=== PATIENT | female | born 1985 | race Two or more races ===

== ENCOUNTER 2017-03-31 02:39 | Emergency (ER) | payer MEDICAID, OTHER ==
[~2017-03-31] VITALS: Ht 160 cm; Wt 90.7 kg
[~2017-03-31 02:39] MED LIST: ISOPTO HOMATROPI5 ML BOTH EYES; NKM; NORCO 5-325 TA1 EACH ORAL; PRED FORTE1 ML OP
[2017-03-31 02:54] VITALS: BP 157/94
[2017-03-31] MEDS ORDERED: Albuterol ud Inhalation HHN ONE (03:00)
[2017-03-31] MEDS ORDERED: IBUPROFEN600 MG ORAL (03:03)
[2017-03-31] MEDS ORDERED: ALBUTEROL SULF8.5 GM INH (03:03)
--- NOTE | 2017-03-31 03:03 | Emergency Room Report ---
History of Present Illness General Chief Complaint: Upper Respiratory Illness Source: Patient Present Illness [facility] This is a 31-year-old female with no past medical history. She presents with chief complaint of fever chills. Also has coughing congestion chest tightness the last 3-4 days. Generalized body pain. Worse with inspiration. Worse with lying flat. [id number] medication not helping much. Allergies: Coded Allergies: LATEX (Unverified Allergy, Unknown, 05/07/14) Patient History Past Medical History: see triage record, old chart reviewed Past Surgical History: none Pertinent Family History: none Social History: Denies: smoking Last Menstrual Period: 2 weeks ago Now: No Immunizations: other Reviewed Nursing Documentation: PMH: Agreed, PSxH: Agreed Review of Systems Constitutional: Reports: chills, fever, weakness Eye: Denies: eye pain, blurred vision ENT: Reports: nose congestion, throat pain, Denies: ear pain, throat swelling Respiratory: Reports: cough, shortness of breath Cardiovascular: Denies: chest pain, palpitations Gastrointestinal: Denies: abdominal pain, diarrhea, nausea, vomiting Musculoskeletal: Denies: back pain, joint pain Skin: Denies: rash Neurological: Denies: headache, numbness Endocrine: Denies: increased thirst, increased urine Hematologic/Lymphatic: Denies: easy bruising All Other Systems: negative except mentioned in HPI Physical Exam Vital Signs Date Time Temp Pulse Resp B/P (MAP) Pulse Ox O2 Delivery O2 Flow Rate FiO2 03/31/17 02:41 98.2 86 18 157/94 96 Room Air vitals with high blood pressure Sp02 EP Interpretation: reviewed, normal General Appearance: well appearing, no apparent distress, alert Head: normocephalic, atraumatic Eyes: bilateral eye PERRL, bilateral eye EOMI ENT: hearing grossly normal, normal pharynx Neck: full range of motion, supple, no meningismus Respiratory: chest non-tender, lungs clear, normal breath sounds, other - Coughing with inspiration Cardiovascular #1: regular rate, rhythm, no murmur Gastrointestinal: normal bowel sounds, non tender, no mass, no organomegaly, no bruit, non-distended Musculoskeletal: back normal, gait/station normal, normal range of motion Psychiatric: mood/affect normal Skin: warm/dry Medical Decision Making Diagnostic Impression: Primary Impression: Influenza-like illness ER Course Patient presents with a viral illness. No evidence of sepsis, meningitis, pneumonia to name a few. Better after breathing treatment. No risk factors for complication from influenza. She is outside of the window for treatment. We'll discharge home. Last Vital Signs Date Time Temp Pulse Resp B/P (MAP) Pulse Ox O2 Delivery O2 Flow Rate FiO2 03/31/17 02:54 86 18 Room Air 03/31/17 02:54 98.2 157/94 96 Status: improved Disposition: HOME, SELF-CARE Condition: Stable Scripts Ibuprofen* (MOTRIN*) 600 Mg Tablet 600 MG ORAL THREE TIMES A DAY, #30 TAB 0 Refills Prov: ANGIE LYLE M.D. 03/31/17 Albuterol Sulfate* (ALBUTEROL SULFATE MDI*) 8.5 Gm Hfa.aer.ad 2 PUFF INH Q4H Y for cough/wheezing, #1 EA 0 Refills Prov: ANGIE LYLE M.D. 03/31/17 Patient Instructions: Upper Respiratory Infection, Adult Additional Instructions: Followup with your DrChina in 7 days. Rest. Increase fluids. Return worse. ANGIE LYLE M.D. Mar 31, 2017 03:03
[2017-03-31 03:37] VITALS: BP 157/94
== END 2017-03-31 03:37 | disposition home or self-care (01) ==
LOC: EMR 02:55
DX: J11.1 Influenza due to unidentified influenza virus with other respiratory manifestations (principal); Z91.040 Latex allergy status
CPT/HCPCS: 99283

== ENCOUNTER 2017-08-27 15:04 | Emergency (ER) | payer OTHER ==
[~2017-08-27] VITALS: Ht 160 cm; Wt 90.7 kg
[~2017-08-27 15:04] MED LIST changes: +ALBUTEROL SULF8.5 GM INH; +IBUPROFEN600 MG ORAL
[2017-08-27 15:19] VITALS: BP 125/69
[2017-08-27] MEDS ORDERED: DIPROLENE OI1 APPLIC TOPIC (15:36)
--- NOTE | 2017-08-27 15:39 | Emergency Room Report ---
History of Present Illness General Chief Complaint: Skin Rash/Abscess Source: Patient, Medical Record (Homero Andrews) Present Illness HPI 30-year-old female patient presents ER complaining of rash on abdomen and back with past 3 weeks. Reports intermittent and pruritic. Denies fever or chest pain. Denies other acute symptoms. Denies vomiting. Denies open wounds or draining. Denies bleeding. Denies other acute symptoms. denies contacts with similar symptoms. Denies change in deodorants or creams. reports previously use steroid cream for 2 days at symptom onset without relief of symptoms. (Homero Andrews) Allergies: Coded Allergies: LATEX (Unverified Allergy, Unknown, 05/07/14) Patient History Past Medical History: see triage record Last Menstrual Period: 08/07/17 Reviewed Nursing Documentation: PMH: Agreed; PSxH: Agreed (Homero Andrews) Social History: Reports: smoking; Denies: alcohol use, drug use Social History Narrative homeless and recent settlement for workman's comp claim, not working now (Vinny Portillo M.D.) Nursing Documentation-PMH Past Medical History: No History, Except For (Homero Andrews) Review of Systems All Other Systems: negative except mentioned in HPI (Homero Andrews) Physical Exam Vital Signs Date Time Temp Pulse Resp B/P (MAP) Pulse Ox O2 Delivery O2 Flow Rate FiO2 08/27/17 15:09 98.1 105 18 125/69 100 Room Air 98.1 Sp02 EP Interpretation: reviewed, normal General Appearance: well appearing, no apparent distress, alert, GCS 15, non- toxic Head: normocephalic, atraumatic Eyes: bilateral eye normal inspection, bilateral eye PERRL ENT: hearing grossly normal, normal pharynx, no angioedema, normal voice, uvula midline, moist mucus membranes Neck: full range of motion Respiratory: lungs clear, normal breath sounds, no rhonchi, no respiratory distress, no accessory muscle use, no wheezing, speaking full sentences Cardiovascular #1: regular rate, rhythm, no edema Musculoskeletal: back normal, digits/nails normal, gait/station normal, normal range of motion, non-tender Neurologic: alert, oriented x3, responsive, motor strength/tone normal, sensory intact Psychiatric: mood/affect normal Skin: rash - multiple scaly plaques on abdomen and back, do not domingo with pressure, no open wounds or lesions, no tenderness to palpation, no central clearing, no satellite lesions, no erythema or edema, no excoriations, no vesicles or blisters; rash spares palms, soles, web spaces bilaterally (Homero Andrews) Medical Decision Making PA Attestation Dr. Portillo is my supervising Physician whom patient management has been discussed with. (Homero Andrews) Diagnostic Impression: Primary Impression: Rash and other nonspecific skin eruption Additional Impression: Stress ER Course Pt. presents to the ED c/o rash. Ddx considered but are not limited to atopic dermatitis, scabies, shingles, hives, urticaria, allergic reaction, impetigo, tinea, pityriasis rosea, psoriasis. Vital signs: are WNL, pt. is afebrile Ordered medication. ER COURSE based on physical exam likely pityriasis rosea vs fungal infection, possible Patrick tree pattern on back, no herald patch noted or reported by patient. will provide topical antifungal medication and Benadryl for pruritus symptoms. informed patient that progressive shortness and likely to resolve on its own. Apply cool compresses, do not scratch. Keep area clean and dry. Follow-up with application packaging consultant for further treatment and referral. Avoid stressors. Provided with information for mental health follow-up. do not believe patient is a danger to herself or others at this time. OK for discharge to home. drink plenty of fluids. Stop smoking. patient seen and evaluated by Dr. Portillo agrees with treatment and plan. DISCHARGE: -Rx given for Benadryl for pruritis. -Rx given for Diflucan topical. apply to affected area for 2 weeks, do not apply to face. At this time pt. is stable for d/c to home. Patient resting comfortably, in no acute distress, nontoxic appearing, smiling. Will provide printed patient care instructions, and any necessary prescriptions. Care plan and follow up instructions have been discussed with the patient prior to discharge. Patient provided with list of healthcare clinics to establish primary care physician. Patient instructed to follow-up with primary care provider in 3 - 5 days. Patient questions asked and answered. ER precautions given. Patient instructed to return to ER immediately for any new or worsening of symptoms including but not limited to increasing SOB, persistent fever. - Please note that this Emergency Department Report was dictated using Vesetpainting department supervisor technology software, occasionally this can lead to erroneous entry secondary to interpretation by the dictation equipment. (Homero Andrews) ER Course I examined this patient and agree with the assessment and treatment plan. (Vinny Portillo M.D.) Last Vital Signs Date Time Temp Pulse Resp B/P (MAP) Pulse Ox O2 Delivery O2 Flow Rate FiO2 08/27/17 15:19 98.1 18 125/69 100 Room Air 98.1 08/27/17 15:09 105 (Homero Andrews) Last Vital Signs Date Time Temp Pulse Resp B/P (MAP) Pulse Ox O2 Delivery O2 Flow Rate FiO2 08/27/17 16:45 98.1 18 125/69 100 Room Air 98.1 08/27/17 15:09 105 (Vinny Portillo M.D.) Disposition: HOME, SELF-CARE Condition: Stable Scripts Clotrimazole* (LOTRIMIN*) 15 Gm Cream..g. 1 APPLIC TOPIC TWICE A DAY for 14 Days, #15 GM Prov: Homero Andrews 08/27/17 Diphenhydramine Hcl* (BENADRYL*) 25 Mg Capsule 25 MG ORAL DAILY PRN for Itching, #30 CAP Prov: Homero Andrews 08/27/17 Patient Instructions: Body Ringworm, Pityriasis Rosea, Psoriasis, [id number] Additional Instructions: Followup with primary care provider in 2-3 days. Request referral to dermatology. Take medications as directed. Apply Small amount of medication to affected area. Do not apply medication to face or eyes. Side effect drowsiness with Benadryl, did not take prior to drinking trying operating any machinery. Wash all clothes, bedding, towels. Keep skin clean and dry. Patient questions asked and answered. ER precautions given, patient instructed to return to ER immediately for any new or worsening of symptoms. Shirley Turner Address: [address] [place], [place] [address] [address] Homero Andrews Aug 27, 2017 15:39 Vinny Portillo M.D. Aug 28, 2017 01:02
[2017-08-27] MEDS ORDERED: HYDROXYZINE PA100 MG ORAL (16:00)
[2017-08-27] MEDS ORDERED: CLOTRIMAZOLE15 GM TOPIC (16:15)
[2017-08-27] MEDS ORDERED: BENADRYL25 MG ORAL (16:15)
[2017-08-27 16:45] VITALS: BP 125/69
== END 2017-08-27 16:45 | disposition home or self-care (01) ==
LOC: EMR 15:35
DX: R21 Rash and other nonspecific skin eruption (principal); F43.9 Reaction to severe stress, unspecified; Z91.040 Latex allergy status
CPT/HCPCS: 99284

== ENCOUNTER 2017-11-15 09:58 | Emergency (ER) | payer OTHER ==
[~2017-11-15] VITALS: Ht 157.5 cm; Wt 90.7 kg
[~2017-11-15 09:58] MED LIST changes: +BENADRYL25 MG ORAL; +CLOTRIMAZOLE15 GM TOPIC; +DIPROLENE OI1 APPLIC TOPIC; +HYDROXYZINE PA100 MG ORAL
[2017-11-15 10:11] VITALS: BP 104/63
[2017-11-15 10:32] LABS: APPEARANCE,URINE SLIGHTLY CLOUDY; BILIRUBIN, URINE NEGATIVE (NEGATIVE); GLUCOSE, URINE (UA) NEGATIVE (NEGATIVE); KETONES,URINE NEGATIVE (NEGATIVE); LEUKOCYTE ESTERASE ,URINE 3+ (NEGATIVE); NITRITE,URINE NEGATIVE (NEGATIVE); PH,URINE 7 (4.5-8.0); PROTEIN,URINE 1+ (NEGATIVE); UROBILINOGEN,URINE 1 MG/DL (0.0-1.0)
[2017-11-15 10:38] LABS: COLOR,URINE YELLOW
--- NOTE | 2017-11-15 11:12 | Emergency Room Report ---
History of Present Illness General Chief Complaint: Female Urogenital Problems Source: Patient Present Illness HPI The patient is 15 weeks 6 days . She states that she underwent a routine ultrasound and was told everything was normal with her ultrasound. She states she also had undergone a pelvic exam earlier that week to include STD testing and states that everything was negative. She is noted that she has had a white discharge that has a fishy odor to it. She states that she is monogamous with the same partner and has no suspicion for an STD. She states that since the pelvic ultrasound yesterday she has had some pain in her lower pelvis. She denies dysuria or hematuria. She denies vaginal bleeding. She denies fever or chills. She has no other complaints. Allergies: Coded Allergies: LATEX (Unverified Allergy, Unknown, 05/07/14) Patient History Past Medical History: none, see triage record Social History: Reports: smoking; Denies: alcohol use, drug use Last Menstrual Period: August 07, 2017 Now: Yes - 15 weeks : 1 Para: 0 Reviewed Nursing Documentation: PMH: Agreed; PSxH: Agreed Nursing Documentation-PMH Past Medical History: No History, Except For Review of Systems All Other Systems: negative except mentioned in HPI Physical Exam Vital Signs Date Time Temp Pulse Resp B/P (MAP) Pulse Ox O2 Delivery O2 Flow Rate FiO2 11/15/17 10:02 98.1 84 18 104/63 96 Room Air 98.1 Sp02 EP Interpretation: reviewed, normal General Appearance: no apparent distress, alert, GCS 15, non-toxic Head: normocephalic, atraumatic Eyes: bilateral eye normal inspection, bilateral eye PERRL ENT: hearing grossly normal, normal pharynx, no angioedema, normal voice Neck: full range of motion, supple/symm/no masses Respiratory: chest non-tender, lungs clear, normal breath sounds, no respiratory distress, no retraction, no accessory muscle use, speaking full sentences Cardiovascular #1: regular rate, rhythm, no edema Gastrointestinal: normal bowel sounds, soft, non-distended, no guarding, no rebound, tenderness - suprapubic and lower abdomen. Rectal: deferred Genitourinary: other - PT declined Musculoskeletal: back normal, gait/station normal, normal range of motion, non- tender Neurologic: alert, oriented x3, responsive, motor strength/tone normal, sensory intact, speech normal Psychiatric: judgement/insight normal, memory normal, mood/affect normal, no suicidal/homicidal ideation Skin: normal color, no rash, warm/dry, well hydrated Medical Decision Making Diagnostic Impression: Primary Impression: Pelvic pain Additional Impression: UTI (urinary tract infection) ER Course This patient presents with pelvic pain and UTI. The patient underwent pelvic ultrasound that showed an appropriately sized fetus with heart tones consistent with dates. The patient recently underwent a pelvic exam and declined repeat pelvic exam. She states all of her tests to include gonorrhea and chlamydia were negative. She has the tests with her. Overall, her evaluation was benign. She complains of vaginal discharge since most likely bacterial vaginosis. I will give her a MetroGel vaginal suppository for this and a course of keflex. She is also instructed to follow-up with her STRATEGIC ACCOUNTS MANAGER. At this time, I did not identify an emergency medical condition. She is given close return precautions and follow-up instructions. Laboratory Tests Test 11/15/17 10:07 Urine Color Yellow Urine Appearance Slightly cloudy Urine pH 7 (4.5-8.0) Urine Specific [place] 1.015 (1.005-1.035) Urine Protein 1+ (NEGATIVE) H Urine Glucose (UA) Negative (NEGATIVE) Urine Ketones Negative (NEGATIVE) Urine Blood 1+ (NEGATIVE) H Urine Nitrite Negative (NEGATIVE) Urine Bilirubin Negative (NEGATIVE) Urine Urobilinogen 1 MG/DL (0.0-1.0) H Urine Leukocyte Esterase 3+ (NEGATIVE) H Urine RBC 2-4 /HPF (0 - 2) H Urine WBC 10-15 /HPF (0 - 2) H Urine Squamous Epithelial Cells Occasional /LPF Urine Bacteria Moderate /HPF (NONE) H CT/MRI/US Diagnostic Results CT/MRI/US Diagnostic Results : Imaging Test Ordered: US pelvis Impression Normal fetus with heart rate of 140. See official report in EMR. Last Vital Signs Date Time Temp Pulse Resp B/P (MAP) Pulse Ox O2 Delivery O2 Flow Rate FiO2 11/15/17 10:11 98.1 84 18 104/63 96 Room Air 98.1 Status: improved Disposition: HOME, SELF-CARE Condition: Improved Referrals: KAYLA MENG (PCP) Patient Instructions: Urinary Tract Infection Charlotte Mike DO Nov 15, 2017 11:12
[2017-11-15 13:45] VITALS: BP 102/60
[2017-11-15] MEDS ORDERED: CEPHALEXIN500 MG ORAL (13:52)
[2017-11-15] MEDS ORDERED: METROGEL-VAGINA70 G1 VAGIN (13:52)
--- NOTE | 2017-11-15 15:42 | Diagnostic Imaging Report ---
EXAM: US After First Trimester, Transabdominal US , Transvaginal CLINICAL HISTORY: PAIN TECHNIQUE: Real-time transabdominal and endovaginal obstetrical ultrasound of the maternal pelvis and a second or third trimester with image documentation. Endovaginal imaging was used for better evaluation of the fetus and adnexa. COMPARISON: No relevant prior studies available. FINDINGS: Fetus: Single live intrauterine corresponding to 15 weeks and 6 days with estimated date of delivery 05/03/18. Heart rate: heart rate 140 BPM. Presentation: Fetus in a transverse lie position. Placenta: Anterior placenta. No abruption. Amniotic fluid: Unremarkable. Anatomy: Intracranial/face anatomy not seen. Spinal anatomy not seen. Abdominal anatomy not seen. Extremities not seen. Four-chamber heart not seen. Umbilical cord not seen. BIOMETRICS Gestational age: 15 weeks 6 days CASEY: 05/03/18 EFW: N/A BPD: BPD 3.08 cm, 15 weeks 5 days. HC: HC 12.08 cm, 16 weeks 0 days. AC: AC 9.89 cm, 16.0 days. FL: FL 1.81cm, 15 weeks 3 days. MATERNAL: Uterus: Unremarkable. No myometrial mass. Cervix: Cervix closed, 3.45 cm long. Free fluid: No free fluid. IMPRESSION: Single live intrauterine corresponding to 15 weeks and 6 days by ultrasound with estimated date of delivery 05/03/18.
== END 2017-11-15 13:45 | disposition home or self-care (01) ==
LOC: EMR 10:19
DX: O23.42 Unspecified infection of urinary tract in pregnancy, second trimester (principal); Z3A.15 15 weeks gestation of pregnancy
CPT/HCPCS: 76805; 81003; 87086; 99284

== ENCOUNTER 2018-03-09 21:33 | Emergency (ER) | payer OTHER ==
[~2018-03-09] VITALS: Ht 175.3 cm; Wt 90.7 kg
[~2018-03-09 21:33] MED LIST changes: +CEPHALEXIN500 MG ORAL; +METROGEL-VAGINA70 G1 VAGIN
[2018-03-09 21:59] VITALS: BP 129/78
--- NOTE | 2018-03-09 22:05 | NUR ---
ED Nurse Note: Patient has complaints of nvd x 3 days. Paient expressed pain all over 10/10.
--- NOTE | 2018-03-09 22:11 | Emergency Room Report ---
History of Present Illness General Chief Complaint: Nausea, Vomiting, and Diarrhea Source: Patient Present Illness HPI Patient presents with complaints of vomiting and diarrhea ongoing for over the past 3 days reports right upper quadrant pain is well some diffuse abdominal cramping denies any fevers she has also developed a headache in the frontal forehead region Denies any neck pain or photophobia denies any chest pain Denies any blood in the vomit or diarrhea Denies any recent travel Patient was when she was here in October however reports having an in November Allergies: Coded Allergies: LATEX (Unverified Allergy, Unknown, 05/07/14) Patient History Past Medical History: see triage record Pertinent Family History: none Last Menstrual Period: 02/20/18 Now: No : 0 Para: 0 Reviewed Nursing Documentation: PMH: Agreed; PSxH: Agreed Nursing Documentation-PMH Past Medical History: No History, Except For Review of Systems All Other Systems: negative except mentioned in HPI Physical Exam Vital Signs Date Time Temp Pulse Resp B/P (MAP) Pulse Ox O2 Delivery O2 Flow Rate FiO2 03/09/18 21:59 98.2 84 18 129/78 100 Room Air Sp02 EP Interpretation: reviewed, normal General Appearance: well appearing, no apparent distress Head: normocephalic, atraumatic Eyes: bilateral eye PERRL, bilateral eye EOMI ENT: hearing grossly normal, normal pharynx, TMs + canals normal, uvula midline Neck: full range of motion, supple, no meningismus, no bony tend Respiratory: lungs clear, normal breath sounds, no rhonchi, no respiratory distress, no retraction, no accessory muscle use Cardiovascular #1: normal peripheral pulses, regular rate, rhythm, no edema, no gallop, no JVD, no murmur Gastrointestinal: normal bowel sounds, non tender, soft, no mass, no organomegaly, non-distended, no guarding, no hernia, no pulsatile mass, no rebound Genitourinary: no CVA tenderness Musculoskeletal: normal inspection Neurologic: oriented x3, responsive, industrial ecology technician III-XII nml as tested, motor strength/ tone normal, sensory intact Psychiatric: mood/affect normal Skin: normal color, no rash, warm/dry, palpation normal Lymphatic: normal inspection, no adenopathy Medical Decision Making Diagnostic Impression: Primary Impression: Nausea, vomiting, and diarrhea Additional Impression: UTI (urinary tract infection) ER Course With the patient's history and examination, multiple differentials considered, including but not limited to , ectopic , ovarian torsion, gastritis, cholecystitis, pancreatitis, appendicitis Given the vomiting and diarrhea infectious pathology also entertained Patient has done significantly better with acute intervention urine sample does show infectious pathology Patient was provided with first dose of antibiotics here Stable for initial conservative outpatient trial Labs Test 03/09/18 22:45 White Blood Count 12.0 K/UL (4.8-10.8) Red Blood Count 5.61 M/UL (4.20-5.40) Hemoglobin 14.4 G/DL (12.0-16.0) Hematocrit 45.2 % (37.0-47.0) Mean Corpuscular Volume 81 FL (80-99) Mean Corpuscular Hemoglobin 25.7 PG (27.0-31.0) Mean Corpuscular Hemoglobin Concent 31.9 G/DL (32.0-36.0) Red Cell Distribution Width 12.8 % (11.6-14.8) Platelet Count 353 K/UL (150-450) Mean Platelet Volume 7.5 FL (6.5-10.1) Neutrophils (%) (Auto) 69.8 % (45.0-75.0) Lymphocytes (%) (Auto) 14.0 % (20.0-45.0) Monocytes (%) (Auto) 7.9 % (1.0-10.0) Eosinophils (%) (Auto) 7.7 % (0.0-3.0) Basophils (%) (Auto) 0.8 % (0.0-2.0) Urine Color Yellow Urine Appearance Slightly cloudy Urine pH 5 (4.5-8.0) Urine Specific [place] 1.020 (1.005-1.035) Urine Protein 1+ (NEGATIVE) Urine Glucose (UA) Negative (NEGATIVE) Urine Ketones Negative (NEGATIVE) Urine Blood 2+ (NEGATIVE) Urine Nitrite Negative (NEGATIVE) Urine Bilirubin Negative (NEGATIVE) Urine Urobilinogen Normal MG/DL (0.0-1.0) Urine Leukocyte Esterase 2+ (NEGATIVE) Urine RBC 5-10 /HPF (0 - 2) Urine WBC 5-10 /HPF (0 - 2) Urine Squamous Epithelial Cells Moderate /LPF (NONE/OCC) Urine Bacteria Moderate /HPF (NONE) Urine Trichomonas Few /HPF (NONE) Urine HCG, Qualitative Negative (NEGATIVE) Sodium Level 136 MMOL/L (136-145) Potassium Level 3.1 MMOL/L (3.5-5.1) Chloride Level 102 MMOL/L (98-107) Carbon Dioxide Level 21 MMOL/L (21-32) Anion Gap 13 mmol/L (5-15) Blood Urea Nitrogen 11 mg/dL (7-18) Creatinine 0.7 MG/DL (0.55-1.30) Estimat Glomerular Filtration Rate > 60 mL/min (>60) Glucose Level 118 MG/DL (74-106) Calcium Level 8.6 MG/DL (8.5-10.1) Total Bilirubin 0.3 MG/DL (0.2-1.0) Aspartate Amino Transf (AST/SGOT) 17 U/L (15-37) Alanine Aminotransferase (ALT/SGPT) 30 U/L (12-78) Alkaline Phosphatase 72 U/L (46-116) Total Protein 8.4 G/DL (6.4-8.2) Albumin 4.1 G/DL (3.4-5.0) Globulin 4.3 g/dL Albumin/Globulin Ratio 1.0 (1.0-2.7) Lipase 90 U/L (73-393) Last Vital Signs Date Time Temp Pulse Resp B/P (MAP) Pulse Ox O2 Delivery O2 Flow Rate FiO2 03/09/18 21:59 98.2 84 18 129/78 100 Room Air Status: improved Disposition: HOME, SELF-CARE Condition: Improved Scripts Ondansetron (Zofran) 4 Mg Tablet 4 MG ORAL Q6H PRN for Nausea & Vomiting, #12 TAB Prov: Thea De Jesus DO 03/10/18 Nitrofurantoin Monohyd/M-Cryst* (MACROBID 100 MG*) 100 Mg Capsule 100 MG ORAL EVERY 12 HOURS for 5 Days, CAP Prov: Thea De Jesus DO 03/10/18 Additional Instructions: Patient is provided with the discharge instructions notified to follow up with primary doctor in the next 2-3 days otherwise return to the er with any worsening symptoms. Please note that this report is being documented using DRAGON technology. This can lead to erroneous entry secondary to incorrect interpretation by the dictating instrument. Thea De Jesus DO Mar 09, 2018 22:11
[2018-03-09] MEDS ORDERED: Ketorolac 30mg Inj IV ONE (22:15)
[2018-03-09] MEDS ORDERED: Metoclopramide 10mg/2ml Inj IVP ONE (22:15)
--- NOTE | 2018-03-09 23:06 | NUR ---
ED Nurse Note: labs drawn and sent down, pain and nausea medication administered, patient resting and on the phone with significant other.
[2018-03-09 23:08] LABS: APPEARANCE,URINE SLIGHTLY CLOUDY; BILIRUBIN, URINE NEGATIVE (NEGATIVE); GLUCOSE, URINE (UA) NEGATIVE (NEGATIVE); KETONES,URINE NEGATIVE (NEGATIVE); LEUKOCYTE ESTERASE ,URINE 2+ (NEGATIVE); NITRITE,URINE NEGATIVE (NEGATIVE); PH,URINE 5 (4.5-8.0); PROTEIN,URINE 1+ (NEGATIVE); UROBILINOGEN,URINE NORMAL MG/DL (0.0-1.0)
[2018-03-09 23:09] LABS: COLOR,URINE YELLOW
[2018-03-09 23:10] LABS: BASOPHILS % (AUTO) 0.8 % (0.0-2.0); EOSINOPHILS % (AUTO) 7.7 % (0.0-3.0); HEMATOCRIT 45.2 % (37.0-47.0); HEMOGLOBIN 14.4 G/DL (12.0-16.0); MEAN CORPUSCULAR VOLUME 81 FL (80-99); MONOCYTES % (AUTO) 7.9 % (1.0-10.0); NEUTROPHILS % (AUTO) 69.8 % (45.0-75.0); PLATELET COUNT 353 K/UL (150-450); RED BLOOD COUNT 5.61 M/UL (4.20-5.40); RED CELL DISTRIBUTION WIDTH 12.8 % (11.6-14.8)
[2018-03-09 23:15] LABS: ANION GAP 13 mmol/L (5-15); BLOOD UREA NITROGEN 11 mg/dL (7-18); CALCIUM 8.6 MG/DL (8.5-10.1); CARBON DIOXIDE 21 MMOL/L (21-32); CHLORIDE 102 MMOL/L (98-107); CREATININE 0.7 MG/DL (0.55-1.30); POTASSIUM 3.1 MMOL/L (3.5-5.1); SODIUM 136 MMOL/L (136-145)
[2018-03-09 23:19] LABS: ALANINE AMINOTRANSFERASE 30 U/L (12-78); ALBUMIN 4.1 G/DL (3.4-5.0); ALKALINE PHOSPHATASE 72 U/L (46-116); ASPARTATE AMINO TRANSFERASE 17 U/L (15-37); BILIRUBIN,TOTAL 0.3 MG/DL (0.2-1.0)
[2018-03-10] MEDS ORDERED: cefTRIAXone 1 GM in NS 55 ML IVPB ONE (00:15)
[2018-03-10] MEDS ORDERED: ZOFRAN4 M1 ORAL (00:52)
[2018-03-10] MEDS ORDERED: NITROFURANTOIN100 M2 ORAL (00:52)
[2018-03-10 01:02] VITALS: BP 129/78
--- NOTE | 2018-03-10 01:02 | NUR ---
ED Nurse Note: patient cleared fof discharge. Patient verbalized understanding of discharge instructions. patient has no complaints of pain. ID band removed, iV removed, patient ambulatory with steady gait.
== END 2018-03-10 01:02 | disposition home or self-care (01) ==
LOC: EMR 21:54
DX: R11.2 Nausea with vomiting, unspecified (principal); R19.7 Diarrhea, unspecified; N39.0 Urinary tract infection, site not specified; Z91.040 Latex allergy status
CPT/HCPCS: 36415; 80053; 81003; 81025; 83690; 85025; 87086; 96361; 96365; 96375; 99284; J0696; J1885; J2765

== ENCOUNTER 2018-05-19 23:29 | Emergency (ER) | payer OTHER ==
[~2018-05-19] VITALS: Ht 160 cm; Wt 90.7 kg
[~2018-05-19 23:29] MED LIST changes: +NITROFURANTOIN100 M2 ORAL; +ZOFRAN4 M1 ORAL
[2018-05-19 23:31] VITALS: BP 136/76
--- NOTE | 2018-05-19 23:42 | Emergency Room Report ---
History of Present Illness General Chief Complaint: Chest Pain Source: Patient Present Illness HPI Patient presents with severe substernal chest pain radiating towards her back. This began a little over an hour ago. She feels like someone sitting on her chest. She's had this before and it was felt to be related to swallowing. She' s taken medication to help her burped in the past for pain like this. She denies cardiac disease in the past. The patient does smoke but is not taking control pills. No leg edema or calf pain. No fevers, chills, productive cough, sore throat. Last period heavy, but she doesn't believe she is . Allergies: Coded Allergies: LATEX (Unverified Allergy, Unknown, 05/07/14) Patient History Past Medical History: see triage record Social History: Reports: smoking Social History Narrative Not work tomorrow Last Menstrual Period: 05/08/18 Now: No Reviewed Nursing Documentation: PMH: Agreed; PSxH: Agreed Nursing Documentation-PMH Past Medical History: No History, Except For Review of Systems All Other Systems: negative except mentioned in HPI Physical Exam Vital Signs Date Time Temp Pulse Resp B/P (MAP) Pulse Ox O2 Delivery O2 Flow Rate FiO2 05/19/18 23:31 98.2 78 18 136/76 98 Room Air Sp02 EP Interpretation: reviewed, normal General Appearance: well appearing, no apparent distress, GCS 15 Head: normocephalic Eyes: bilateral eye normal inspection, bilateral eye PERRL, bilateral eye EOMI ENT: moist mucus membranes Neck: supple Respiratory: chest non-tender, lungs clear, normal breath sounds Cardiovascular #1: regular rate, rhythm, no edema Cardiovascular #2: 2+ radial (R) Gastrointestinal: normal inspection, normal bowel sounds, non tender, no mass, non-distended Musculoskeletal: back normal, gait/station normal, normal range of motion, no calf tenderness, Bernadette's Sign negative Neurologic: alert, oriented x3, grossly normal Psychiatric: anxious Skin: normal inspection, warm/dry Medical Decision Making Diagnostic Impression: Primary Impression: Chest pain Qualified Codes: R07.9 - Chest pain, unspecified Additional Impression: Esophageal spasm ER Course Patient presents with severe chest and back pain after eating. Differential includes esophagitis, esophageal spasm, myocardial infarction, aortic aneurysm, gastritis, pulmonary embolus amongst others. Patient is at low risk for pulmonary embolus. Patient will be with EKG, chest x-ray and labs. The patient will be given a GI cocktail and Pepcid. EKG normal sinus rhythm. Patient still severe pain 20 minutes after GI cocktail in quite a bit of distress Zofran and morphine ordered. CXR no infiltrates. CBC with slight leukocytosis. Elevated BUN. Normal troponin. Improved with treatment. Pain greatly improved. Discussed results and impression along with treatment plan. Patient stable for outpatient observation and treatment. Laboratory Tests Test 05/19/18 23:40 05/20/18 00:36 White Blood Count 11.9 K/UL (4.8-10.8) H Red Blood Count 4.67 M/UL (4.20-5.40) Hemoglobin 11.8 G/DL (12.0-16.0) L Hematocrit 36.7 % (37.0-47.0) L Mean Corpuscular Volume 79 FL (80-99) L Mean Corpuscular Hemoglobin 25.2 PG (27.0-31.0) L Mean Corpuscular Hemoglobin Concent 32.1 G/DL (32.0-36.0) Red Cell Distribution Width 13.4 % (11.6-14.8) Platelet Count 369 K/UL (150-450) Mean Platelet Volume 7.5 FL (6.5-10.1) Neutrophils (%) (Auto) 52.7 % (45.0-75.0) Lymphocytes (%) (Auto) 32.6 % (20.0-45.0) Monocytes (%) (Auto) 5.4 % (1.0-10.0) Eosinophils (%) (Auto) 8.3 % (0.0-3.0) H Basophils (%) (Auto) 1.0 % (0.0-2.0) Prothrombin Time 9.9 SEC (9.30-11.50) Prothrombin Time INR 0.9 (0.9-1.1) PTT 26 SEC (23-33) Sodium Level 139 MMOL/L (136-145) Potassium Level 3.8 MMOL/L (3.5-5.1) Chloride Level 103 MMOL/L (98-107) Carbon Dioxide Level 25 MMOL/L (21-32) Anion Gap 11 mmol/L (5-15) Blood Urea Nitrogen 20 mg/dL (7-18) H Creatinine 0.9 MG/DL (0.55-1.30) Estimate Glomerular Filtration Rate > 60 mL/min (>60) Glucose Level 98 MG/DL (74-106) Calcium Level 8.9 MG/DL (8.5-10.1) Total Bilirubin < 0.1 MG/DL (0.2-1.0) L Aspartate Amino Transferase (AST) 8 U/L (15-37) L Alanine Aminotransferase (ALT) 19 U/L (12-78) Alkaline Phosphatase 58 U/L (46-116) Total Creatine Kinase 68 U/L (26-308) Troponin I 0.009 ng/mL (0.000-0.056) Pro-B-Type Natriuretic Peptide 18 pg/mL (0-125) Total Protein 7.8 G/DL (6.4-8.2) Albumin 3.9 G/DL (3.4-5.0) Globulin 3.9 g/dL Albumin/Globulin Ratio 1.0 (1.0-2.7) Urine Color Pale yellow Urine Appearance Clear Urine pH 6.5 (4.5-8.0) Urine Specific Allison 1.020 (1.005-1.035) Urine Protein Negative (NEGATIVE) Urine Glucose (UA) Negative (NEGATIVE) Urine Ketones Negative (NEGATIVE) Urine Blood 1+ (NEGATIVE) H Urine Nitrite Negative (NEGATIVE) Urine Bilirubin Negative (NEGATIVE) Urine Urobilinogen Normal MG/DL (0.0-1.0) Urine Leukocyte Esterase 1+ (NEGATIVE) H Urine RBC 2-4 /HPF (0 - 2) H Urine WBC 2-4 /HPF (0 - 2) Urine Squamous Epithelial Cells Moderate /LPF (NONE/OCC) H Urine Bacteria Few /HPF (NONE) Urine HCG, Qualitative Negative (NEGATIVE) EKG Diagnostic Results Rate: normal Rhythm: NSR ST Segments: no acute changes Rhythm Strip Diag. Results EP Interpretation: yes Rhythm: NSR, no PVC's, no ectopy Chest X-Ray Diagnostic Results Chest X-Ray Diagnostic Results : Chest X-Ray Ordered: Yes # of Views/Limited/Complete: 1 View Indication: Chest Pain Interpretation: no consolidation, no effusion, no pneumothorax, other - Air in stomach Impression: Other Electronically Signed by: Electronically signed by Vinny Portillo MD Last Vital Signs Date Time Temp Pulse Resp B/P (MAP) Pulse Ox O2 Delivery O2 Flow Rate FiO2 05/20/18 02:40 97.8 89 20 139/71 99 Room Air Status: improved Disposition: HOME, SELF-CARE Condition: Improved Scripts Tramadol Hcl* (ULTRAM*) 50 Mg Tablet 50 MG ORAL Q6H PRN for For Pain, #6 TAB 0 Refills Prov: Vinny Portillo MD 05/20/18 Acetaminophen (Tylenol) 325 Mg Tablet 650 MG ORAL Q6H PRN for Prn Pain/Headache/Temp > 101, #20 TAB 0 Refills Prov: Vinny Portillo MD 05/20/18 Famotidine (PEPCID AC) 20 Mg Tablet 20 MG PO DAILY, #20 TAB Prov: Vinny Portillo MD 05/20/18 Mag Hydrox/Al Hydrox/Simeth (MAALOX MAXIMUM STRENGTH SUSP) 355 Ml Oral.susp 30 ML PO Q6HR, #240 ML Prov: Vinny Portillo MD 05/20/18 Referrals: LETICIA CORRALES,REFERRING (PCP) Vinny Portillo MD May 19, 2018 23:42
[2018-05-19] MEDS ORDERED: Mylanta II UD 30ml ORAL ONE (23:45)
[2018-05-19] MEDS ORDERED: Lidocaine 2% Visc 15ml soln ORAL ONE (23:45)
[2018-05-19 23:51] LABS: EOSINOPHILS % (AUTO) 8.3 % (0.0-3.0); HEMATOCRIT 36.7 % (37.0-47.0); HEMOGLOBIN 11.8 G/DL (12.0-16.0); LYMPHOCYTES % (AUTO) 32.6 % (20.0-45.0); MEAN CORPUSCULAR VOLUME 79 FL (80-99); MONOCYTES % (AUTO) 5.4 % (1.0-10.0); NEUTROPHILS % (AUTO) 52.7 % (45.0-75.0); PLATELET COUNT 369 K/UL (150-450); RED BLOOD COUNT 4.67 M/UL (4.20-5.40); RED CELL DISTRIBUTION WIDTH 13.4 % (11.6-14.8); WHITE BLOOD COUNT 11.9 K/UL (4.8-10.8)
[2018-05-20 00:04] LABS: INR 0.9 (0.9-1.1)
[2018-05-20 00:05] LABS: ANION GAP 11 mmol/L (5-15); BLOOD UREA NITROGEN 20 mg/dL (7-18); CALCIUM 8.9 MG/DL (8.5-10.1); CARBON DIOXIDE 25 MMOL/L (21-32); CHLORIDE 103 MMOL/L (98-107); CREATININE 0.9 MG/DL (0.55-1.30); POTASSIUM 3.8 MMOL/L (3.5-5.1); SODIUM 139 MMOL/L (136-145)
[2018-05-20] MEDS ORDERED: Morphine Sulfate 4mg/ml Inj (IV USE ONLY) ONE (00:09)
[2018-05-20] MEDS ORDERED: Morphine Sulfate 4mg/ml Inj (IV USE ONLY) IVP ONE (00:15)
[2018-05-20 00:17] LABS: ALANINE AMINOTRANSFERASE 19 U/L (12-78); ALBUMIN 3.9 G/DL (3.4-5.0); ALKALINE PHOSPHATASE 58 U/L (46-116); ASPARTATE AMINO TRANSFERASE 8 U/L (15-37); BILIRUBIN,TOTAL < 0.1 MG/DL (0.2-1.0); CREATINE KINASE 68 U/L (26-308)
[2018-05-20 00:50] LABS: BILIRUBIN, URINE NEGATIVE (NEGATIVE); COLOR,URINE PALE YELLOW; GLUCOSE, URINE (UA) NEGATIVE (NEGATIVE); KETONES,URINE NEGATIVE (NEGATIVE); LEUKOCYTE ESTERASE ,URINE 1+ (NEGATIVE); NITRITE,URINE NEGATIVE (NEGATIVE); PH,URINE 6.5 (4.5-8.0); PROTEIN,URINE NEGATIVE (NEGATIVE); UROBILINOGEN,URINE NORMAL MG/DL (0.0-1.0)
[2018-05-20 00:54] LABS: APPEARANCE,URINE CLEAR
[2018-05-20] MEDS ORDERED: PEPCID AC20 M2 PO (02:24)
[2018-05-20] MEDS ORDERED: MAALOX MAXIMUM355 M1 PO (02:24)
[2018-05-20] MEDS ORDERED: TYLENOL325 MG ORAL (02:24)
[2018-05-20] MEDS ORDERED: TRAMADOL HCL50 MG ORAL (02:24)
[2018-05-20 02:40] VITALS: BP 139/71
--- NOTE | 2018-05-20 11:07 | Diagnostic Imaging Report ---
Indication: Dyspnea Comparison: None A single view chest radiograph was obtained. Findings: Cardiomediastinal appearance is within normal limits for age. The lungs are clear. Pulmonary vascularity is appropriate. The diaphragmatic contour is smooth and costophrenic angles are sharp. No pleural effusions are identified. The bones are unremarkable. Impression: No acute findings
--- NOTE | 2018-05-20 14:46 | Cardiology Report ---
APPROVED REPORT EKG Measurement Heart [id number] Normal sinus rhythm Normal ECG
== END 2018-05-20 02:40 | disposition home or self-care (01) ==
LOC: EMR 23:36
DX: R07.9 Chest pain, unspecified (principal); F17.200 Nicotine dependence, unspecified, uncomplicated; Z91.040 Latex allergy status; K22.4 Dyskinesia of esophagus; M54.9 Dorsalgia, unspecified; D72.829 Elevated white blood cell count, unspecified
CPT/HCPCS: 36415; 71045; 80053; 81003; 81025; 82550; 83880; 84484; 85025; 85610; 85730; 93005; 96374; 96375; 99284; J2270; J2405; S0028

== ENCOUNTER 2018-09-04 21:53 | Emergency (ER) | payer OTHER ==
[~2018-09-04] VITALS: Ht 160 cm; Wt 90.7 kg
[~2018-09-04 21:53] MED LIST changes: +MAALOX MAXIMUM355 M1 PO; +PEPCID AC20 M2 PO; +TRAMADOL HCL50 MG ORAL; +TYLENOL325 MG ORAL
--- NOTE | 2018-09-04 22:01 | NUR ---
NOT IN LOBBY, PT WENT TO RESTROOM.
--- NOTE | 2018-09-04 22:08 | NUR ---
ED Nurse Note: Patient walked into ED c/o hematuria accompanied by lower abdominal pain that radiates to her lower back, patient states that this started 2 days ago, rates her pain a 10/10. patient is alert and oriented x4, ambulatory with a steady gait, VSS
[2018-09-04 22:21] VITALS: BP 121/69
[2018-09-04] MEDS ORDERED: CEPHALEXIN500 MG ORAL (22:26)
[2018-09-04] MEDS ORDERED: IBUPROFEN600 MG ORAL (22:26)
[2018-09-04] MEDS ORDERED: PHENAZOPYRIDIN200 MG ORAL (22:26)
--- NOTE | 2018-09-04 22:27 | Emergency Room Report ---
History of Present Illness General Chief Complaint: Female Urogenital Problems Source: Patient Present Illness HPI This is a 33-year-old female with no past medical history. She presents with chief complaint of urinary frequency, urgency and dysuria. Also with right- sided lower back pain. Onset for 2 days. Pain is 8 out of 10. Worse with urination. No nausea no vomiting. No fever chills. Allergies: Coded Allergies: LATEX (Unverified Allergy, Unknown, 05/07/14) Patient History Past Medical History: none, see triage record, old chart reviewed Past Surgical History: other Pertinent Family History: none Social History: Denies: smoking Last Menstrual Period: 08/30/18 Now: No Immunizations: other Reviewed Nursing Documentation: PMH: Agreed; PSxH: Agreed Nursing Documentation-PMH Past Medical History: No History, Except For Review of Systems Eye: Denies: eye pain, blurred vision ENT: Denies: ear pain, nose congestion, throat swelling Respiratory: Denies: cough, shortness of breath Cardiovascular: Denies: chest pain, palpitations Gastrointestinal: Denies: abdominal pain, diarrhea, nausea, vomiting Genitourinary: Reports: dysuria, frequency, pain, urgency Musculoskeletal: Denies: back pain, joint pain Skin: Denies: rash Neurological: Denies: headache, numbness Endocrine: Denies: increased thirst, increased urine Hematologic/Lymphatic: Denies: easy bruising All Other Systems: negative except mentioned in HPI Physical Exam Vital Signs Date Time Temp Pulse Resp B/P (MAP) Pulse Ox O2 Delivery O2 Flow Rate FiO2 09/04/18 22:08 98.8 97 18 121/69 (86) 100 Room Air Vitals normal Sp02 EP Interpretation: reviewed, normal General Appearance: well appearing, no apparent distress, alert Head: normocephalic, atraumatic Eyes: bilateral eye PERRL, bilateral eye EOMI ENT: hearing grossly normal, normal pharynx Neck: full range of motion, supple, no meningismus Respiratory: chest non-tender, lungs clear, normal breath sounds Cardiovascular #1: regular rate, rhythm, no murmur Gastrointestinal: normal bowel sounds, non tender, no mass, no organomegaly, no bruit, non-distended Musculoskeletal: back normal, gait/station normal, normal range of motion Psychiatric: mood/affect normal Medical Decision Making Diagnostic Impression: Primary Impression: UTI (urinary tract infection) Qualified Codes: N30.00 - Acute cystitis without hematuria ER Course Patient presents with symptoms consistent with UTI. A sending in nature. No pyelonephritis at this moment in time. Dose of antibiotics and Pyridium given here. Will discharge home. Last Vital Signs Date Time Temp Pulse Resp B/P (MAP) Pulse Ox O2 Delivery O2 Flow Rate FiO2 09/04/18 22:21 98.8 86 18 121/69 100 Room Air Status: improved Disposition: HOME, SELF-CARE Condition: Stable Scripts Phenazopyridine Hcl* (PYRIDIUM*) 200 Mg Tablet 200 MG ORAL THREE TIMES A DAY, #6 TAB 0 Refills Prov: Niraj Gibson MD 09/04/18 Ibuprofen* (MOTRIN*) 600 Mg Tablet 600 MG ORAL THREE TIMES A DAY, #30 TAB 0 Refills Prov: Niraj Gibson MD 09/04/18 Cephalexin* (KEFLEX*) 500 Mg Capsule 500 MG ORAL TID, #21 CAP Prov: Niraj Gibson MD 09/04/18 Patient Instructions: Urinary Tract Infection Additional Instructions: Increase fluid. Follow-up with your doctor in 2 to 3 days if not better. Return if symptoms worsen. Niraj Gibson MD Sep 04, 2018 22:27
[2018-09-04] MEDS ORDERED: Phenazopyridine 200mg tab ORAL ONE (22:30)
[2018-09-04] MEDS ORDERED: HYDROcodone/Acetamin 5/325 tab ORAL ONE (22:30)
[2018-09-04] MEDS ORDERED: Cephalexin 500mg cap ORAL ONE (22:30)
[2018-09-04 22:35] VITALS: BP 125/72
--- NOTE | 2018-09-04 22:35 | NUR ---
ER DISCHARGE NOTE: Patient is cleared to be discharged per ERMD, pt is aox4, on room air, with stable vital signs. pt was given dc and prescription instructions, pt was able to verbalize understanding, pt id band removed without complications. pt is able to ambulate with steady gait. pt took all belongings.
== END 2018-09-04 22:35 | disposition home or self-care (01) ==
LOC: EMR 22:25
DX: N39.0 Urinary tract infection, site not specified (principal); Z91.040 Latex allergy status
CPT/HCPCS: 87086; 87181; 99282

== ENCOUNTER 2018-11-05 12:34 | Emergency (ER) | payer OTHER ==
[~2018-11-05] VITALS: Ht 160 cm; Wt 90.7 kg
[~2018-11-05 12:34] MED LIST changes: +PHENAZOPYRIDIN200 MG ORAL
[2018-11-05] MEDS ORDERED: LORazepam Inj 2mg/ml 1ml IV ONE (13:00)
[2018-11-05] MEDS ORDERED: Ketorolac 30mg Inj IV ONE (13:00)
--- NOTE | 2018-11-05 13:17 | NUR ---
ED Nurse Note: pt arrives from home with c/o back,esophagus burning and cp. pt restless and crying in discomfort. ice pack applied to her upper back at her request. pt relates she doesnt know what she ate but that she has bad reflux. pt reports she has been seen here for same in past. pt relates she is not taking meds to manage reflux at home and has not had followup. pt with voided urine sent to lab. pt aware awaiting urine test prior to meds given. no n/v no blood in stool per pt. abd soft nt
[2018-11-05 13:27] LABS: BASOPHILS % (AUTO) 0.6 % (0.0-2.0); HEMATOCRIT 43.4 % (37.0-47.0); HEMOGLOBIN 13.5 G/DL (12.0-16.0); LYMPHOCYTES % (AUTO) 13.2 % (20.0-45.0); MEAN CORPUSCULAR VOLUME 80 FL (80-99); NEUTROPHILS % (AUTO) 77.2 % (45.0-75.0); PLATELET COUNT 301 K/UL (150-450); RED BLOOD COUNT 5.42 M/UL (4.20-5.40); RED CELL DISTRIBUTION WIDTH 14.3 % (11.6-14.8); WHITE BLOOD COUNT 13.4 K/UL (4.8-10.8)
[2018-11-05 13:36] LABS: ANION GAP 11 mmol/L (5-15); BLOOD UREA NITROGEN 8 mg/dL (7-18); CARBON DIOXIDE 21 MMOL/L (21-32); CHLORIDE 106 MMOL/L (98-107); CREATININE 0.7 MG/DL (0.55-1.30); INR 0.9 (0.9-1.1); SODIUM 138 MMOL/L (136-145)
--- NOTE | 2018-11-05 13:36 | NUR ---
ED Nurse Note: pt becoming aggressive and yelling at rn calling rn a saleem. attempted to deescalate situation with pt and remind her i have given her explanations of waiting for med administration agter urine hcg is resulted. attempting to assist pt back to be and pt states to get fucking away from her if i am not going to help her. security notified at coming to speak to pt. blast furnace supervisor notified.
[2018-11-05 13:41] LABS: ALANINE AMINOTRANSFERASE 19 U/L (12-78); ALBUMIN 3.9 G/DL (3.4-5.0); ALKALINE PHOSPHATASE 55 U/L (46-116); ASPARTATE AMINO TRANSFERASE 14 U/L (15-37); BILIRUBIN,TOTAL 0.3 MG/DL (0.2-1.0)
--- NOTE | 2018-11-05 13:45 | NUR ---
ED Nurse Note: pt utilizing phone. pt given updates that test results still pending. pt remains upset with rn
[2018-11-05 13:58] VITALS: BP 121/78
[2018-11-05 13:58] LABS: APPEARANCE,URINE SLIGHTLY CLOUDY; BILIRUBIN, URINE NEGATIVE (NEGATIVE); COLOR,URINE PALE YELLOW; GLUCOSE, URINE (UA) NEGATIVE (NEGATIVE); KETONES,URINE NEGATIVE (NEGATIVE); LEUKOCYTE ESTERASE ,URINE 1+ (NEGATIVE); NITRITE,URINE NEGATIVE (NEGATIVE); PH,URINE 6 (4.5-8.0); PROTEIN,URINE NEGATIVE (NEGATIVE); UROBILINOGEN,URINE NORMAL MG/DL (0.0-1.0)
--- NOTE | 2018-11-05 14:01 | NUR ---
AMA: SEE AMA FORM. pt desires to leave before tests resulted and meds given states she wants to get medicine elsewhere. amb steady gait out of ed. iv site out intactly. oil burner technician and Gene Olmos aware. pt is a.ox4
--- NOTE | 2018-11-05 15:18 | Diagnostic Imaging Report ---
Indication: Chest pain Comparison: 05/20/2018 A single view chest radiograph was obtained. Findings: Cardiomediastinal appearance is within normal limits for age. The lungs are clear. Pulmonary vascularity is appropriate. The diaphragmatic contour is smooth and costophrenic angles are sharp. No pleural effusions are identified. The bones are unremarkable. Impression: No acute findings
--- NOTE | 2018-11-05 21:45 | Emergency Room Report ---
History of Present Illness General Chief Complaint: Pain Source: Patient Present Illness HPI 33-year-old female with history of unknown psychiatric disorder ambulates to the ER crying and complaining of a 10 out of 10 upper back pain that started this morning upon waking up. Denies any fall or injury. Denies heavy lifting heavy objects. Complains that the pain radiates to her chest however denies any pain radiation to the left arm and jaw. Denies palpitation, headache and dizziness. Patient has not taken medication for pain. Denies lower back pain, urinary frequency, dysuria. Patient has been seen for the same issue at [facility] before. Denies abdominal pain, nausea vomiting. Patient is noncooperative with staff. Keeps crying and screaming loudly. Patient is understandably had to wait for her urine results before administration of medication. Patient decides to leave AGAINST MEDICAL ADVICE and she does not agrees with Toradol and wants something stronger. Denies recent surgery, , fall or injury, calf tenderness and swelling Allergies: Coded Allergies: LATEX (Unverified Allergy, Unknown, 05/07/14) Patient History Past Medical History: see triage record Past Surgical History: unable to obtain Pertinent Family History: none Last Menstrual Period: 10/16/18 Now: No Immunizations: UTD Reviewed Nursing Documentation: PMH: Agreed; PSxH: Agreed Review of Systems All Other Systems: negative except mentioned in HPI Physical Exam Vital Signs Date Time Temp Pulse Resp B/P (MAP) Pulse Ox O2 Delivery O2 Flow Rate FiO2 11/05/18 12:37 97.9 62 24 135/72 (93) 100 Room Air Sp02 EP Interpretation: reviewed, normal General Appearance: no apparent distress, alert, GCS 15, non-toxic Head: normocephalic, atraumatic Eyes: bilateral eye normal inspection, bilateral eye PERRL ENT: hearing grossly normal, normal pharynx, no angioedema, normal voice Neck: full range of motion, supple/symm/no masses Respiratory: chest non-tender, lungs clear, normal breath sounds, speaking full sentences Cardiovascular #1: regular rate, rhythm, no edema, no murmur, normal capillary refill Cardiovascular #2: 2+ dorsalis pedis (R), 2+ dorsalis pedis (L) Gastrointestinal: normal inspection, normal bowel sounds, non tender, soft, no mass Genitourinary: no CVA tenderness Musculoskeletal: normal inspection, back normal, digits/nails normal, gait/ station normal, normal range of motion, non-tender Neurologic: normal inspection, alert, oriented x3 Psychiatric: judgement/insight normal, memory normal, no suicidal/homicidal ideation, anxious Skin: no rash Lymphatic: normal inspection, no adenopathy Medical Decision Making PA Attestation All diagnoses and treatment plans were reviewed and discussed with my supervising physician Dr. Felipe Diagnostic Impression: Primary Impression: Left against medical advice ER Course 33-year-old female with history of unknown psychiatric disorder ambulates to the ER crying and complaining of a 10 out of 10 upper back pain that started this morning upon waking up. Denies any fall or injury. Denies heavy lifting heavy objects. Complains that the pain radiates to her chest however denies any pain radiation to the left arm and jaw. Denies palpitation, headache and dizziness. Patient has not taken medication for pain. Denies lower back pain, urinary frequency, dysuria. Patient has been seen for the same issue at [facility] before. Denies abdominal pain, nausea vomiting. Patient is noncooperative with staff. Keeps crying and screaming loudly. Patient is understandably had to wait for her urine results before administration of medication. Patient decides to leave AGAINST MEDICAL ADVICE and she does not agrees with Toradol and wants something stronger. Denies recent surgery, , fall or injury, calf tenderness and swelling Ddx considered but are not limited to : thoracic spine fracture, thoracic spine strain, throacic spine sprain, radiculopathy. Vital signs: are WNL, pt. is afebrile H&PE are most consistent with: thoracic spine strain, left AGAINST MEDICAL ADVICE ORDERS: Thoracic spine XR, CXR< CBC, CMP, UA, urine preg, ED INTERVENTIONS: toradol and ativan but pt left AMA DISCHARGE: At this time pt. is stable for d/c to home. Will provide printed patient care instructions, and any necessary prescriptions. Care plan and follow up instructions have been discussed with the patient prior to discharge. Patient left AMA patient stable at time of discharge patient also has a urinary tract infection but left AGAINST MEDICAL ADVICE before your results were back however patient denied dysuria urinary frequency Chest X-Ray Diagnostic Results Chest X-Ray Diagnostic Results : Chest X-Ray Ordered: Yes # of Views/Limited/Complete: 1 View Indication: Other PA Xray: by supervising MD, and agrees with findings. Interpretation: no consolidation, no effusion, no pneumothorax Impression: No acute disease Electronically Signed by: Amarilis Cobian PA-C Last Vital Signs Date Time Temp Pulse Resp B/P (MAP) Pulse Ox O2 Delivery O2 Flow Rate FiO2 11/05/18 13:58 97.9 78 18 121/78 98 Room Air Disposition: AGAINST MEDICAL ADVICE Condition: Stable Referrals: NON PHYSICIAN (PCP) Amarilis Vallejo Nov 05, 2018 21:45
--- NOTE | 2018-11-07 13:11 | Cardiology Report ---
APPROVED REPORT EKG Measurement Heart [id number] [id number] Normal sinus rhythm Normal ECG
--- NOTE | 2018-11-08 19:40 | Emergency Room Report ---
Physical Exam Vital Signs Date Time Temp Pulse Resp B/P (MAP) Pulse Ox O2 Delivery O2 Flow Rate FiO2 11/05/18 12:37 97.9 62 24 135/72 (93) 100 Room Air Medical Decision Making PA Attestation All my diagnosis and treatment plans were reviewed ad discussed with my supervising physician Dr. De Jesus Diagnostic Impression: Primary Impression: Left against medical advice ER Course Urine culture came back positive for 100,000 bacteria E. coli however patient left AGAINST MEDICAL ADVICE and did not wait to be treated. I called the patient today and left a voicemail but not reach out for call back Last Vital Signs Date Time Temp Pulse Resp B/P (MAP) Pulse Ox O2 Delivery O2 Flow Rate FiO2 11/05/18 13:58 97.9 78 18 121/78 98 Room Air Disposition: AGAINST MEDICAL ADVICE Condition: Stable Referrals: NON PHYSICIAN (PCP) Amarilis Vallejo Nov 08, 2018 19:40
== END 2018-11-05 13:58 | disposition left against medical advice (07) ==
LOC: EMR 13:05
DX: M54.6 Pain in thoracic spine (principal); Z91.040 Latex allergy status; Z86.59 Personal history of other mental and behavioral disorders
CPT/HCPCS: 36415; 71045; 80053; 81001; 81025; 85025; 85610; 85730; 87086; 87181; 93005; 96374; 96375; Z7502; 99284